=== PATIENT | male | born 1995 | race Caucasian/White ===

== ENCOUNTER → 2021-01-22 | Outpatient (CLI) | payer OTHER ==
[2021-01-22 15:03] LABS: APPEARANCE, URINE CLEAR (CLEAR); BACTERIA, URINE AUTO NEGATIVE (NEGATIVE); BILIRUBIN, URINE AUTO NEGATIVE (NEGATIVE); BLOOD, URINE BLOOD NEGATIVE (NEGATIVE); COLOR, URINE YELLOW (YELLOW); GLUCOSE, URINE (UA) AUTO NEGATIVE (NEGATIVE); KETONE, URINE AUTO NEGATIVE (NEGATIVE); LEUKOCYTE ESTERASE, URINE AUTO NEGATIVE (NEGATIVE); MUCUS, URINE SMALL (NEGATIVE); NITRITE, URINE AUTO NEGATIVE (NEGATIVE); PROTEIN, URINE AUTO NEGATIVE (NEGATIVE); RBC, URINE AUTO 1 /HPF (0-3); SPECIFIC GRAVITY URINE AUTO 1.021 (1.002-1.035); SQUAMOUS EPITHELIAL CELL UR AU 0 /HPF (0-6); UROBILINOGEN, URINE AUTO 0.2 mg/dL (0.0-2.0); WBC, URINE AUTO 0 /HPF (0-3)
[2021-01-22 15:07] LABS: BASO % 0.6 % (0.0-1.0); EOS # 0.1 10^3/uL (0.0-0.5); EOS % 1.6 % (0.0-3.0); LYMPH # 2.1 10^3/uL (1.5-5.0); LYMPH % 29.3 % (24.0-44.0); MEAN CORPUSCULAR HEMOGLOBIN 33.3 pg (27.0-33.0); MEAN CORPUSCULAR HGB CONC 34.6 g/dl (32.0-36.5); MEAN CORPUSCULAR VOLUME 96.3 fl (80.0-96.0); MONO # 0.4 10^3/uL (0.0-0.8); MONO % 6.2 % (2.0-8.0); NEUTROPHILS # 4.4 10^3/uL (1.5-8.5); PLATELET COUNT, AUTOMATED 182 10^3/uL (150-450); WHITE BLOOD COUNT 7.1 10^3/uL (4.0-10.0)
[2021-01-22 15:16] LABS: HEMATOCRIT 54.9 % (42.0-52.0)
[2021-01-22 15:34] LABS: ALBUMIN 4.4 GM/DL (3.2-5.2); ALT/SGPT 20 U/L (12-78); BILIRUBIN,TOTAL 0.4 MG/DL (0.2-1.0); BLOOD UREA NITROGEN 12 MG/DL (7-18); CALCIUM LEVEL 9.3 MG/DL (8.5-10.1); CARBON DIOXIDE LEVEL 30 MEQ/L (21-32); CHLORIDE LEVEL 107 MEQ/L (98-107); CREATININE FOR GFR 1.18 MG/DL (0.70-1.30); GLOMERULAR FILTRATION RATE > 60.0 (>60); GLUCOSE, FASTING 88 MG/DL (70-100); POTASSIUM SERUM 4.2 MEQ/L (3.5-5.1); SODIUM LEVEL 140 MEQ/L (136-145); TOTAL PROTEIN 7.3 GM/DL (6.4-8.2)
[2021-01-22 15:52] LABS: ERYTHROCYTE SEDIMENTATION RATE 1 mm/hr (0-15)
[2021-01-22 16:14] LABS: HEPATITIS C VIRUS ABY INDEX < 0.0 INDEX (<0.8)
[2021-01-22 16:15] LABS: HIV 1&2 SCREEN CENTAUR NEGATIVE (NEGATIVE)
== END ==
LOC: M LAB 14:08
PROVIDERS: ATTEND Internal Medicine Infectious Disease
DX: B51.9 Plasmodium vivax malaria without complication (principal)
CPT/HCPCS: 36415; 80053; 81001; 84443; 85025; 85652; 86140; 86803; 87040; 87207; 87389; G0463

== ENCOUNTER → 2021-01-30 | Outpatient (CLI) | payer OTHER ==
[2021-01-30 18:06] LABS: BASO # 0.1 10^3/uL (0.0-0.2); BASO % 0.7 % (0.0-1.0); EOS # 0.2 10^3/uL (0.0-0.5); EOS % 1.8 % (0.0-3.0); HEMOGLOBIN 18.2 g/dl (13.5-17.5); LYMPH # 2.5 10^3/uL (1.5-5.0); LYMPH % 30.3 % (24.0-44.0); MEAN CORPUSCULAR HEMOGLOBIN 33.8 pg (27.0-33.0); MEAN CORPUSCULAR VOLUME 96.5 fl (80.0-96.0); MONO # 0.6 10^3/uL (0.0-0.8); MONO % 6.7 % (2.0-8.0); NEUTROPHILS % 60.1 % (36.0-66.0); PLATELET COUNT, AUTOMATED 187 10^3/uL (150-450); RED BLOOD COUNT 5.39 10^6/uL (4.30-6.10); WHITE BLOOD COUNT 8.4 10^3/uL (4.0-10.0)
[2021-01-30 18:41] LABS: ERYTHROCYTE SEDIMENTATION RATE 1 mm/hr (0-15)
[2021-01-30 18:45] LABS: ALBUMIN 4.4 GM/DL (3.2-5.2); ALT/SGPT 18 U/L (12-78); BILIRUBIN,TOTAL 0.4 MG/DL (0.2-1.0); BLOOD UREA NITROGEN 17 MG/DL (7-18); CALCIUM LEVEL 9.3 MG/DL (8.5-10.1); CARBON DIOXIDE LEVEL 29 MEQ/L (21-32); CHLORIDE LEVEL 107 MEQ/L (98-107); CREATININE FOR GFR 1.17 MG/DL (0.70-1.30); GLOMERULAR FILTRATION RATE > 60.0 (>60); GLUCOSE, FASTING 87 MG/DL (70-100); SODIUM LEVEL 140 MEQ/L (136-145); TOTAL PROTEIN 7.2 GM/DL (6.4-8.2)
--- NOTE | 2021-01-31 03:17 | REP ---
INDICATION: COUGH, PLASMODIUM VIVAX MALARIA WITHOUT / LABS 1ST COMPARISON: None. TECHNIQUE: PA and lateral. FINDINGS: The mediastinum and cardiac silhouette are normal. The lung saldana are clear and without acute consolidation, effusion, or pneumothorax. The skeletal structures are intact and normal. IMPRESSION: No acute cardiopulmonary process. <Electronically signed by Chance Leung > 01/31/21 [id number]
== END ==
LOC: M LAB 16:27
PROVIDERS: ATTEND Internal Medicine Infectious Disease
DX: R05 Cough (principal); B51.9 Plasmodium vivax malaria without complication
CPT/HCPCS: 36415; 71046; 80053; 85025; 85652; 87207; G0463

== ENCOUNTER → 2021-02-01 | Outpatient (CLI) | payer OTHER ==
--- NOTE | 2021-02-01 09:42 | REP ---
INDICATION: NAUSEA, VOMITING COMPARISON: None. TECHNIQUE: Real time lewis scale ultrasound examination using curved array transducer. FINDINGS: Liver is normal in contour, size, and echogenicity without focal hepatic lesions identified. Pancreas is incompletely evaluated due to interposed bowel gas. The gallbladder is normal and without gallstones, wall thickening, or pericholecystic fluid. No biliary ductal dilatation is appreciated and the common bile duct measures 3.1 mm diameter. Right kidney is normal in reniform shape without hydronephrosis and measures 10.8 x 4.7 x 3.2 cm. No ascites in the visualized right upper quadrant. IMPRESSION: Normal limited right upper quadrant ultrasound <Electronically signed by Chance Leung > 02/01/21 0960
== END ==
LOC: M RAD 08:56
PROVIDERS: ATTEND Internal Medicine Infectious Disease
DX: R11.2 Nausea with vomiting, unspecified (principal)

== ENCOUNTER → 2021-03-14 | Outpatient (CLI) | payer OTHER ==
[~2021-03-14] MED LIST: PROHANCE 279.3MG/ML 15ML VIAL As Ordered ONE
--- NOTE | 2021-03-14 13:23 | REP ---
INDICATION: ERYTHROCYTOSIS, LBP. COMPARISON: None. TECHNIQUE: Sagittal and axial T1 and T2-weighted scans are acquired in the usual fashion with and without fat saturation. Sequences include spin echo, turbo spin-echo, and STIR imaging sequences. Gadolinium enhancement dose is 15 mL of intravenous ProHance. Axial and sagittal post gadolinium enhanced images are also acquired. FINDINGS: There is straightening of the normal lumbar lordosis. Lumbar vertebral body heights are preserved. No bony destructive lesion is seen. The tip of the conus medullaris is normal in position and appearance at the L1 level. No extra vertebral abnormality is appreciated. At L5-S1, there is degenerative narrowing and decreased signal intensity in the L5-S1 disc. There is a annulus tear with the a small central focal disc protrusion at L5-S1. This effaces the ventral epidural fat but does not appear to compress the thecal sac on MR images. There is bulging and some early discogenic spurring in the foraminal segments of the disc margin bilaterally producing minimal bilateral neural foraminal narrowing. No spinal stenosis is seen. Axial and sagittal images at L4-5 show no evidence of disc protrusion, foraminal narrowing, or central canal stenosis. The L3-4, L2-3, and L1-2 disc levels are unremarkable. IMPRESSION: Degenerative disc disease at L5-S1 with small central L5-S1 disc protrusion and mild bilateral foraminal segment discogenic spurring. <Electronically signed by Gopi Richard > 03/14/21 1949
== END ==
LOC: M RAD 09:54
PROVIDERS: ATTEND Internal Medicine Infectious Disease
DX: D75.1 Secondary polycythemia (principal); M51.26 Other intervertebral disc displacement, lumbar region; M51.36 Other intervertebral disc degeneration, lumbar region
CPT/HCPCS: 72148; A9576

== ENCOUNTER → 2021-03-20 | Outpatient (CLI) | payer OTHER ==
[~2021-03-20] MED LIST changes: +GASTROGRAFIN SOLUTION 30ML (Q9963) As Ordered ONE; +ISOVUE-370 76% 100ML VIAL As Ordered ONE; -PROHANCE 279.3MG/ML 15ML VIAL As Ordered ONE
--- NOTE | 2021-03-20 16:46 | REPVR ---
PROCEDURE INFORMATION: Exam: CT Abdomen And Pelvis Without And With Contrast Exam date and time: 03/20/2021 4:09 PM Age: 26 years old Clinical indication: Abdominal pain; Generalized; Additional info: Abd pain nausea vomiting wt loss fever TECHNIQUE: Imaging protocol: Computed tomography of the abdomen and pelvis without and with contrast. Radiation optimization: All CT scans at this facility use at least one of these dose optimization techniques: automated exposure control; mA and/or kV adjustment per patient size (includes targeted exams where dose is matched to clinical indication); or iterative reconstruction. Contrast material: ISOVUE 370; Contrast volume: 100 ml; Contrast route: INTRAVENOUS (IV); COMPARISON: LIVER US 02/01/2021 9:02 AM FINDINGS: Pleural spaces: No acute airspace or pleural disease. Liver: No focal hepatic mass. Gallbladder and bile ducts: Contracted gallbladder. No biliary ductal dilatation. Pancreas: No pancreatic mass or ductal dilatation. Spleen: Spleen upper limits of normal in size. Adrenal glands: Unremarkable adrenals. Kidneys and ureters: Normal renal morphology. No hydronephrosis. Stomach and bowel: Dilated contrast and fluid-filled stomach. Mild sigmoid colon wall thickening (series 301: Image 119). Prominent stool and diverticula, without pericolonic inflammation. Appendix: Status post appendectomy. Intraperitoneal space: No free fluid. Vasculature: Normal caliber of the abdominal aorta. Lymph nodes: Subcentimeter lymph nodes. Urinary bladder: Nondistended bladder. Reproductive: Unremarkable as visualized. Bones/joints: Schmorl's nodes and vertebral endplate irregularity. IMPRESSION: 1. Mild sigmoid colon wall thickening (series 301: Image 119). 2. Prominent stool and diverticula, without pericolonic inflammation. 3. Additional findings as described above. Electronically signed by: Alexis Fiore On 03/20/2021 16:45:41 PM
== END ==
LOC: M RAD 14:30
PROVIDERS: ATTEND Internal Medicine Infectious Disease
DX: R11.2 Nausea with vomiting, unspecified (principal); R63.4 Abnormal weight loss; K57.30 Diverticulosis of large intestine without perforation or abscess without bleeding
CPT/HCPCS: 74178; Q9963; Q9967

== ENCOUNTER → 2021-04-18 | Outpatient (CLI) | payer OTHER ==
[~2021-04-18] MED LIST changes: +ADDE30CA3 PO; +FLON1SPR NARES; -GASTROGRAFIN SOLUTION 30ML (Q9963) As Ordered ONE; -ISOVUE-370 76% 100ML VIAL As Ordered ONE; +MELO15TA28 PO; +METO10TA2 PO; +PANT40TA29 PO
--- NOTE | 2021-04-18 09:13 | PFTRPT ---
Site: [facility], [address] [place] [address], [id number] ID: [id number] Name: LEIGH ANN MENJIVAR Visit Date: 04/18/2021 Second ID: [id number] Referring Doctor: Khang Mariscal M.D. Reviewing Doctor: Sabas Bazan MD Toll Mechanic: [place] NELSON RRT Age: 26 : 1995 Sex: Male Race: Height: 70.00 Inches Weight: 165.00 Lbs BSA: 1.92 Order IDs: [id number] Requested Test(s): <RESP-PFT.PFT B/A> Diagnosis: LEUKEMIA test meet the ATS standards for acceptability and repeatability. Pt was given four puffs of albuterol for post bronchodilator. Review Status: Not Reviewed Pre-Bronch Post-Bronch Pred Actual %Pred Actual %Chng SPIROMETRY FVC (L) 5.52 6.57 119 6.60 FEV1 (L) 4.53 4.38 96 4.79 9 FEV1/FVC (%) 82 67 81 72 8 FEF 25% (L/sec) 8.07 5.92 73 6.19 4 FEF 50% (L/sec) 5.44 3.46 63 4.64 34 FEF 75% (L/sec) 2.14 1.58 73 2.17 37 FEF 25-75% (L/sec) 4.62 3.13 67 3.97 26 FEF Max (L/sec) 10.23 7.30 71 7.37 FIVC (L) 6.31 6.40 1 FIF 50% (L/sec) 5.58 7.51 134 6.47 -13 FIF Max (L/sec) 7.74 6.61 -14 MVV (L/min) 182 131 71 Expiratory Time (sec) 6.84 6.98 1 Back Extrap Vol (L) 0.11 0.13 19 Time To FEFmax (sec) 0.098 0.104 6 LUNG VOLUMES SVC (L) 5.33 6.40 120 IC (L) 3.54 4.95 139 ERV (L) 1.79 1.45 80 TGV (L) 3.35 5.40 161 RV (Pleth) (L) 1.56 3.95 253 TLC (Pleth) (L) 6.89 10.35 150 RV/TLC (Pleth) (%) 22 38 173 DIFFUSION DLCOunc (ml/min/mmHg) 35.96 34.40 95 DL/VA (ml/min/mmHg/L) 5.22 3.96 75 VA (L) 6.89 8.68 125 BHT (sec) 10.08 IVC (L) 6.22 TLC (SB) (L) 8.83 AIRWAYS RESISTANCE Raw (cmH2O/L/s) 1.45 0.91 62 Gaw (L/s/cmH2O) 1.03 1.10 107 sRaw (cmH2O*s) 4.76 4.53 95 sGaw (1/cmH2O*s) 0.20 0.22 110
--- NOTE | 2021-04-18 09:57 | REP ---
INDICATION: COPD PFT FIRST. COMPARISON: 01/30/2021 FINDINGS: The superior mediastinal structures are midline. The cardiac silhouette is unremarkable in size, shape, and position. The diaphragmatic surfaces of the lungs are regular, and the costophrenic angles are clear. The pulmonary saldana are clear. The imaged osseous structures are intact. IMPRESSION: There is no acute cardiopulmonary disease. There has been no significant change compared to the prior exam. <Electronically signed by Braydon Alvarez > 04/18/21 0923
== END ==
LOC: M CARPUL 08:35
PROVIDERS: ATTEND Internal Medicine Hematology & Oncology
DX: J44.9 Chronic obstructive pulmonary disease, unspecified (principal)

== ENCOUNTER → 2021-06-14 | Outpatient (CLI) | payer OTHER ==
[~2021-06-14] MED LIST changes: +METHACHOLINE KIT (J7674) INH ONE
--- NOTE | 2021-06-14 10:13 | PFTRPT ---
Visit Date: 06/14/2021 Referring Doctor: Minal Mcnair Height: 70.00 Inches Weight: 165.00 Lbs BSA: 1.92 Diagnosis: R06.02 QUALITY: Study of excellent technical quality. PROCEDURE: Under protocol, methacholine was administered. A dose of 25 mg or 188.875 CDUs, a 22% decline in the FEV1 was noted but the PC of 19.60 does not meet the diagnostic criteria for a positive study. Flow rates did return to baseline post bronchodilator administration. IMPRESSION: Indeterminate testing in view of the above. Please correlate clinically. MTDD
== END ==
LOC: M CARPUL 09:02
PROVIDERS: ATTEND Nurse Practitioner Adult Health
DX: R06.02 Shortness of breath (principal)

== ENCOUNTER 2021-07-20 14:05 | Day surgery (SDC) | payer OTHER ==
[~2021-07-20] VITALS: Ht 177.8 cm; Wt 77.0 kg
[~2021-07-20 14:05] MED LIST changes: +LR 1,000 ML IV ONE; -METHACHOLINE KIT (J7674) INH ONE; +NS 1,000 ML IV ONE
[2021-07-20] MEDS ORDERED: LIDOCAINE 2% 100MG/5ML SDV (FOR ANES.) As Ordered ONE (15:00)
[2021-07-20] MEDS ORDERED: propofoL 500 MG/50 ML VIAL As Ordered ONE (15:00)
--- NOTE | 2021-07-20 15:44 | ROOR ---
Patient Name: Sea Solano Procedure Date: 07/20/2021 3:11 PM Date of : 1995 Age: 26 Room: [facility] Gender: Male Note Status: Finalized Procedure: Upper GI endoscopy Indications: Dyspepsia, Weight loss Providers: Jonathan Jarvis MD Referring MD: Teto Baird Do Requesting Provider: Medicines: Monitored Anesthesia Care Complications: No immediate complications. Procedure: Pre-Anesthesia Assessment: - Prior to the procedure, a History and Physical was performed, and patient medications and allergies were reviewed. The patient is competent. The risks and benefits of the procedure and the sedation options and risks were discussed with the patient. All questions were answered and informed consent was obtained. Patient identification and proposed procedure were verified by the physician, the nurse and the anesthesiologist in the procedure room. Mental Status Examination: alert and oriented. Airway Examination: normal oropharyngeal airway and neck mobility. Respiratory Examination: clear to auscultation. CV Examination: normal. Prophylactic Antibiotics: The patient does not require prophylactic antibiotics. Prior Anticoagulants: The patient has taken no previous anticoagulant or antiplatelet agents. ASA Grade Assessment: II - A patient with mild systemic disease. After reviewing the risks and benefits, the patient was deemed in satisfactory condition to undergo the procedure. The anesthesia plan was to use monitored anesthesia care (MAC). Immediately prior to administration of medications, the patient was re-assessed for adequacy to receive sedatives. The heart rate, respiratory rate, oxygen saturations, blood pressure, adequacy of pulmonary ventilation, and response to care were monitored throughout the procedure. The physical status of the patient was re-assessed after the procedure. The Endoscope was introduced through the mouth, and advanced to the second part of duodenum. The upper GI endoscopy was accomplished without difficulty. The patient tolerated the procedure well. Findings: Patchy, white plaques were found in the middle third of the esophagus and in the lower third of the esophagus. Biopsies were taken with a cold forceps for histology. Cells for cytology were obtained by brushing. Verification of patient identification for the specimen was done by the physician and nurse using the patient's name, date and medical record number. Estimated blood loss was minimal. LA Grade A (one or more mucosal breaks less than 5 mm, not extending between tops of 2 mucosal folds) esophagitis with no bleeding was found in the distal esophagus. Scattered mild inflammation characterized by erythema and granularity was found in the gastric antrum. Biopsies were taken with a cold forceps for Helicobacter pylori testing. The first portion of the duodenum and second portion of the duodenum were normal. Biopsies for histology were taken with a cold forceps for evaluation of celiac disease. Impression: - Esophageal plaques were found, consistent with candidiasis. Biopsied. Cells for cytology obtained. - LA Grade A reflux esophagitis. - Gastritis. Biopsied. - Normal first portion of the duodenum and second portion of the duodenum. Biopsied. Recommendation: - Patient has a contact number available for emergencies. The signs and symptoms of potential delayed complications were discussed with the patient. Return to normal activities tomorrow. Written discharge instructions were provided to the patient. - High fiber diet. - Continue present medications. - Await pathology results. - Follow an antireflux regimen. - Telephone GI clinic for pathology results in 2 weeks. - Return to GI clinic if persistent symptoms or new symptoms. - Return to primary care physician. Procedure Code(s): --- Professional --- 51098, Esophagogastroduodenoscopy, flexible, transoral; with biopsy, single or multiple Diagnosis Code(s): --- Professional --- K22.9, Disease of esophagus, unspecified K21.0, Gastro-esophageal reflux disease with esophagitis K29.70, Gastritis, unspecified, without bleeding R10.13, Epigastric pain R63.4, Abnormal weight loss CPT copyright 2019 [employer]. All rights reserved. The codes documented in this report are preliminary and upon flying shear operator review may be revised to meet current compliance requirements. Jonathan Jarvis MD Jonathan Jarvis MD 07/20/2021 3:43:50 PM Electronically signed by Jonathan Jarvis MD Number of Addenda: 0 Note Initiated On: 07/20/2021 3:11 PM Estimated Blood Loss: Estimated blood loss was minimal.
--- NOTE | 2021-07-20 15:53 | ROOR ---
Patient Name: Sea Solano Procedure Date: 07/20/2021 3:07 PM Date of : 1995 Age: 26 Room: [facility] Gender: Male Note Status: Finalized Procedure: Colonoscopy Indications: Change in bowel habits, Weight loss Providers: Jonathan Jarvis MD Referring MD: Teto Baird Do Requesting Provider: Medicines: Monitored Anesthesia Care Complications: No immediate complications. Procedure: Pre-Anesthesia Assessment: - Prior to the procedure, a History and Physical was performed, and patient medications and allergies were reviewed. The patient is competent. The risks and benefits of the procedure and the sedation options and risks were discussed with the patient. All questions were answered and informed consent was obtained. Patient identification and proposed procedure were verified by the physician, the nurse and the anesthesiologist in the procedure room. Mental Status Examination: alert and oriented. Airway Examination: normal oropharyngeal airway and neck mobility. Respiratory Examination: clear to auscultation. CV Examination: normal. Prophylactic Antibiotics: The patient does not require prophylactic antibiotics. Prior Anticoagulants: The patient has taken no previous anticoagulant or antiplatelet agents. ASA Grade Assessment: II - A patient with mild systemic disease. After reviewing the risks and benefits, the patient was deemed in satisfactory condition to undergo the procedure. The anesthesia plan was to use monitored anesthesia care (MAC). Immediately prior to administration of medications, the patient was re-assessed for adequacy to receive sedatives. The heart rate, respiratory rate, oxygen saturations, blood pressure, adequacy of pulmonary ventilation, and response to care were monitored throughout the procedure. The physical status of the patient was re-assessed after the procedure. The Colonoscope was introduced through the anus and advanced to the terminal ileum, with identification of the appendiceal orifice and IC valve. The colonoscopy was performed without difficulty. The patient tolerated the procedure well. The quality of the bowel preparation was poor. The terminal ileum, ileocecal valve, appendiceal orifice, and rectum were photographed. Scope insertion time was 2 minutes. Scope withdrawal time was 8 minutes. The total duration of the procedure was 10 minutes. Findings: The perianal and digital rectal examinations were normal. The terminal ileum appeared normal. A moderate amount of solid stool was found in the transverse colon and in the ascending colon, interfering with visualization. Lavage of the area was performed using a large amount of sterile water, resulting in incomplete clearance with fair visualization. There is no endoscopic evidence of mass, stricture or ulcerations in the entire colon. Biopsies for histology were taken with a cold forceps from the right colon, left colon, transverse colon and rectosigmoid colon for evaluation of microscopic colitis. Verification of patient identification for the specimen was done by the physician and nurse using the patient's name, date and medical record number. Estimated blood loss was minimal. Non-bleeding external and internal hemorrhoids were found during retroflexion. The hemorrhoids were small. Impression: - Preparation of the colon was poor. - The examined portion of the ileum was normal. - Stool in the transverse colon and in the ascending colon. - Non-bleeding external and internal hemorrhoids. Recommendation: - Patient has a contact number available for emergencies. The signs and symptoms of potential delayed complications were discussed with the patient. Return to normal activities tomorrow. Written discharge instructions were provided to the patient. - High fiber diet. - Continue present medications. - Await pathology results. - Repeat colonoscopy after studies are complete to evaluate the response to therapy and because the examination was incomplete. - Repeat colonoscopy at age 49 for screening purposes. - Return to GI clinic if persistent symptoms or new symptoms. - Telephone GI clinic for pathology results in 2 weeks. - Return to primary care physician. Procedure Code(s): --- Professional --- 12327, Colonoscopy, flexible; with biopsy, single or multiple Diagnosis Code(s): --- Professional --- K64.8, Other hemorrhoids R19.4, Change in bowel habit R63.4, Abnormal weight loss CPT copyright 2019 [employer]. All rights reserved. The codes documented in this report are preliminary and upon chummer review may be revised to meet current compliance requirements. Jonathan Jarvis MD Jonathan Jarvis MD 07/20/2021 3:52:42 PM Electronically signed by Jonathan Jarvis MD Number of Addenda: 0 Note Initiated On: 07/20/2021 3:07 PM Estimated Blood Loss: Estimated blood loss was minimal.
[2021-07-20 16:08] VITALS: BP 114/64
== END 2021-07-20 16:10 | disposition home or self-care (01) ==
LOC: M SDC 14:05
PROVIDERS: ATTEND Internal Medicine Gastroenterology
DX: R63.4 Abnormal weight loss (principal); R10.13 Epigastric pain; R19.4 Change in bowel habit; K64.8 Other hemorrhoids; K29.70 Gastritis, unspecified, without bleeding; K21.00 Gastro-esophageal reflux disease with esophagitis, without bleeding; F43.10 Post-traumatic stress disorder, unspecified; F41.9 Anxiety disorder, unspecified; F32.9 Major depressive disorder, single episode, unspecified; J45.909 Unspecified asthma, uncomplicated; Z79.899 Other long term (current) drug therapy

== ENCOUNTER → 2021-08-29 | Outpatient (CLI) | payer OTHER ==
[~2021-08-29] MED LIST changes: +ISOVUE-370 76% 100ML VIAL As Ordered ONE; -LR 1,000 ML IV ONE; -NS 1,000 ML IV ONE
--- NOTE | 2021-08-29 17:34 | REP ---
INDICATION: COUGH COMPARISON: None. TECHNIQUE: Standard helical technique after the intravenous administration of 100 cc Isovue 370. FINDINGS: The mediastinum and pulmonary park are within normal limits. There is a tiny amount of soft tissue density seen in the anterior junction line likely a small amount of residual thymic tissue. There is no evidence of a mass or adenopathy. There are no pleural or pericardial effusions. The imaged upper abdomen and imaged osseous structures are within normal limits. Evaluation of the lung saldana shows no abnormal nodules, masses, or opacities. IMPRESSION: CT findings are within normal limits. <Electronically signed by Braydon Alvarez > 08/29/21 [id number]
== END ==
LOC: M RAD 16:04
PROVIDERS: ATTEND Specialist
DX: R05.9 Cough, unspecified (principal)
CPT/HCPCS: 71260; Q9967

== ENCOUNTER → 2021-08-29 | Outpatient (CLI) | payer OTHER ==
[~2021-08-29] MED LIST changes: -ISOVUE-370 76% 100ML VIAL As Ordered ONE
== END ==
LOC: M LAB 16:06
PROVIDERS: ATTEND Internal Medicine Gastroenterology
DX: R19.7 Diarrhea, unspecified (principal)

== ENCOUNTER → 2021-09-05 | Outpatient (REF) | payer OTHER | LOC: M LAB REF 15:31 | PROVIDERS: ATTEND Internal Medicine Gastroenterology | DX: R19.7 Diarrhea, unspecified (principal) ==

== ENCOUNTER 2021-10-16 17:26 | Emergency (ER) | payer OTHER ==
[~2021-10-16] VITALS: Ht 177.8 cm; Wt 72.7 kg
[2021-10-16] MEDS ORDERED: PROZ20CA11 PO (17:41)
[2021-10-16 19:29] VITALS: BP 118/61
== END 2021-10-16 19:30 | disposition home or self-care (01) ==
LOC: M ED 17:26
DX: F43.20 Adjustment disorder, unspecified (principal); F32.9 Major depressive disorder, single episode, unspecified; J45.909 Unspecified asthma, uncomplicated; Z79.899 Other long term (current) drug therapy

== ENCOUNTER → 2021-12-21 | Outpatient (CLI) | payer OTHER ==
[~2021-12-21] MED LIST changes: +PROZ20CA11 PO
== END ==
LOC: M RAD 10:38
PROVIDERS: ATTEND Internal Medicine Medical Oncology
DX: R22.2 Localized swelling, mass and lump, trunk (principal)

== ENCOUNTER 2022-02-10 19:33 | Inpatient (IN) | payer OTHER ==
[~2022-02-10] VITALS: Ht 175.3 cm; Wt 72.7 kg
[2022-02-10 20:33] LABS: HEMATOCRIT 49.1 % (42.0-52.0); HEMOGLOBIN 16.4 g/dl (13.5-17.5); MEAN CORPUSCULAR HEMOGLOBIN 33.1 pg (27.0-33.0); MEAN CORPUSCULAR HGB CONC 33.4 g/dl (32.0-36.5); MEAN CORPUSCULAR VOLUME 99.2 fl (80.0-96.0); PLATELET COUNT, AUTOMATED 206 10^3/uL (150-450); RED BLOOD COUNT 4.95 10^6/uL (4.30-6.10); WHITE BLOOD COUNT 9.2 10^3/uL (4.0-10.0)
[2022-02-10 21:03] LABS: AMPHETAMINES LEVEL URINE NEGATIVE (NEGATIVE); BARBITURATES URINE NEGATIVE (NEGATIVE); BENZODIAZEPINES URINE POSITIVE (NEGATIVE); CANNABINOIDS URINE POSITIVE (NEGATIVE); COCAINE METABOLITE URINE NEGATIVE (NEGATIVE); METHADONE URINE NEGATIVE (NEGATIVE); OPIATES URINE POSITIVE (NEGATIVE); PHENCYCLIDINE URINE POSITIVE (NEGATIVE)
[2022-02-10 21:06] LABS: ACETAMINOPHEN LEVEL < 2.0 UG/ML (10.0-30.0); ALBUMIN 4.1 GM/DL (3.2-5.2); ALT/SGPT 24 U/L (12-78); BILIRUBIN,DIRECT 0.3 MG/DL (0.0-0.2); BILIRUBIN,TOTAL 0.8 MG/DL (0.2-1.0); BLOOD UREA NITROGEN 20 MG/DL (7-18); CALCIUM LEVEL 8.8 MG/DL (8.5-10.1); CARBON DIOXIDE LEVEL 28 MEQ/L (21-32); CHLORIDE LEVEL 108 MEQ/L (98-107); CREATININE FOR GFR 1.37 MG/DL (0.70-1.30); ETHYL ALCOHOL (ETHANOL) < 0.003 % (0.000-0.010); GLOMERULAR FILTRATION RATE > 60.0 (>60); GLUCOSE, FASTING 113 MG/DL (70-100); POTASSIUM SERUM 4.2 MEQ/L (3.5-5.1); SALICYLATE LEVEL < 1.7 MG/DL (5.0-30.0); SODIUM LEVEL 142 MEQ/L (136-145)
[2022-02-10 21:11] LABS: RSV AMPLIFICATION NEGATIVE (NEGATIVE)
[2022-02-11] MEDS ORDERED: LEXA1TAB2 PO (07:54)
[2022-02-11] MEDS ORDERED: PANT40TA29 PO (07:55)
[2022-02-11] MEDS ORDERED: ADVA115A INH (07:55)
[2022-02-11] MEDS ORDERED: HOME MED LIST COMPLETE! XX SCH (08:00)
[2022-02-11] MEDS ORDERED: FLUoxetine 20MG CAP PO ONE (08:35)
[2022-02-11] MEDS ORDERED: ESCITALOPRAM OXALATE 10 MG TAB (LEXAPRO) PO ONE (08:35)
[2022-02-11] MEDS ORDERED: PANTOPRAZOLE 40MG TAB (PROTONIX) PO ONE (08:35)
[2022-02-11] MEDS: PANTOPRAZOLE 40MG TAB (PROTONIX) PO SCH (09:00)
[2022-02-11] MEDS: FLUoxetine 20MG CAP PO SCH (09:00)
[2022-02-11] MEDS: ADVAIR HFA 115/21MCG INHALER INH SCH ×2 (09:00→22:01)
[2022-02-11] MEDS: FOLIC ACID 1 MG TAB PO SCH (09:00)
[2022-02-11] MEDS: MULTIVITAMINS/MINERALS THERAP 1 TAB PO SCH (09:00)
[2022-02-11] MEDS: NICOTINE 21MG/24HR 1 EA TRANSDERMAL TD SCH (09:00)
[2022-02-11] MEDS: AMPHETAMINE/DEXTROAMPHETAMINE 5 MG *ER* CAPSULE (ADDERALL XR) PO SCH (09:00)
[2022-02-11] MEDS ORDERED: diphenhydrAMINE 25MG CAP PO PRN (12:35)
[2022-02-11] MEDS ORDERED: MOM 30ML SUSPENSION UDC PO PRN (12:35)
[2022-02-11] MEDS ORDERED: ACETAMINOPHEN TAB 650MG DOSE (2X325MG) PO PRN (12:35)
[2022-02-11] MEDS ORDERED: MAALOX 30 ML SUSP *UDC PO PRN (12:35)
[2022-02-11] MEDS ORDERED: ADVAIR HFA 115/21MCG INHALER INH PRN (12:35)
[2022-02-11] MEDS ORDERED: LORazepam 2 MG TAB PO PRN (12:35)
[2022-02-11] MEDS: THIAMINE 100 MG TAB PO SCH ×2 (13:00→22:02)
[2022-02-11 20:51] VITALS: BP 123/80
[2022-02-11 21:00] VITALS: BP 123/80
[2022-02-11] MEDS: traZODone 50 MG TAB PO PRN (22:02)
[2022-02-12 06:40] VITALS: BP 133/66
[2022-02-12] MEDS: THIAMINE 100 MG TAB PO SCH ×2 (08:31→20:15)
[2022-02-12] MEDS: FLUoxetine 20MG CAP PO SCH (08:31)
[2022-02-12] MEDS: ADVAIR HFA 115/21MCG INHALER INH SCH ×2 (08:31→20:15)
[2022-02-12] MEDS: PANTOPRAZOLE 40MG TAB (PROTONIX) PO SCH (08:31)
[2022-02-12] MEDS: MULTIVITAMINS/MINERALS THERAP 1 TAB PO SCH (08:32)
[2022-02-12] MEDS: FOLIC ACID 1 MG TAB PO SCH (08:32)
[2022-02-12] MEDS: NICOTINE 21MG/24HR 1 EA TRANSDERMAL TD SCH (08:32)
[2022-02-12] MEDS: AMPHETAMINE/DEXTROAMPHETAMINE 5 MG *ER* CAPSULE (ADDERALL XR) PO SCH (12:33)
[2022-02-12 18:03] VITALS: BP 136/75
[2022-02-12] MEDS: traZODone 50 MG TAB PO PRN (20:15)
[2022-02-12 21:30] VITALS: BP 136/75
[2022-02-13 06:49] VITALS: BP 134/59
[2022-02-13 06:50] VITALS: BP 134/59
[2022-02-13] MEDS: PANTOPRAZOLE 40MG TAB (PROTONIX) PO SCH (08:28)
[2022-02-13] MEDS: AMPHETAMINE/DEXTROAMPHETAMINE 5 MG *ER* CAPSULE (ADDERALL XR) PO SCH (08:28)
[2022-02-13] MEDS: FLUoxetine 20MG CAP PO SCH (08:28)
[2022-02-13] MEDS: THIAMINE 100 MG TAB PO SCH ×2 (08:28→20:50)
[2022-02-13] MEDS: ADVAIR HFA 115/21MCG INHALER INH SCH ×2 (08:28→20:50)
[2022-02-13] MEDS: FOLIC ACID 1 MG TAB PO SCH (08:28)
[2022-02-13] MEDS: MULTIVITAMINS/MINERALS THERAP 1 TAB PO SCH (08:28)
[2022-02-13 08:38] LABS: BLOOD UREA NITROGEN 10 MG/DL (7-18); CALCIUM LEVEL 9.5 MG/DL (8.5-10.1); CARBON DIOXIDE LEVEL 27 MEQ/L (21-32); CHLORIDE LEVEL 108 MEQ/L (98-107); CREATININE FOR GFR 1.09 MG/DL (0.70-1.30); GLOMERULAR FILTRATION RATE > 60.0 (>60); GLUCOSE, FASTING 90 MG/DL (70-100); POTASSIUM SERUM 3.6 MEQ/L (3.5-5.1); SODIUM LEVEL 142 MEQ/L (136-145)
[2022-02-13] MEDS: NICOTINE 21MG/24HR 1 EA TRANSDERMAL TD SCH (09:00)
[2022-02-13 18:10] VITALS: BP 136/90
[2022-02-13 20:10] VITALS: BP 136/90
[2022-02-13] MEDS: traZODone 50 MG TAB PO PRN (20:50)
[2022-02-14 06:26] VITALS: BP 139/60
[2022-02-14 06:27] VITALS: BP 139/60
[2022-02-14] MEDS: ADVAIR HFA 115/21MCG INHALER INH SCH (08:10)
[2022-02-14] MEDS: AMPHETAMINE/DEXTROAMPHETAMINE 5 MG *ER* CAPSULE (ADDERALL XR) PO SCH (08:14)
[2022-02-14] MEDS: FOLIC ACID 1 MG TAB PO SCH (08:14)
[2022-02-14] MEDS: FLUoxetine 20MG CAP PO SCH (08:14)
[2022-02-14] MEDS: MULTIVITAMINS/MINERALS THERAP 1 TAB PO SCH (08:14)
[2022-02-14] MEDS: PANTOPRAZOLE 40MG TAB (PROTONIX) PO SCH (08:14)
[2022-02-14] MEDS: NICOTINE 21MG/24HR 1 EA TRANSDERMAL TD SCH (08:15)
[2022-02-14] MEDS ORDERED: NICO21PAT TD (09:47)
== END 2022-02-14 13:35 | disposition home or self-care (01) | DRG 881 ==
LOC: M ED 19:33 → M ED INP 02-11 12:35 → M PSY 02-11 20:44
PROVIDERS: ADMIT Student in an Organized Health Care Education/Training Program; ATTEND Psychiatry & Neurology Psychiatry
DX: F32.A Depression, unspecified (principal); R45.851 Suicidal ideations; Z79.899 Other long term (current) drug therapy; F12.90 Cannabis use, unspecified, uncomplicated; F41.9 Anxiety disorder, unspecified; Z65.3 Problems related to other legal circumstances; Z63.0 Problems in relationship with spouse or partner; F11.90 Opioid use, unspecified, uncomplicated

== ENCOUNTER → 2022-03-14 | Outpatient (REF) ==
[~2022-03-14] MED LIST changes: +ADVA115A INH; +LEXA1TAB2 PO; +NICO21PAT TD
== END ==
LOC: M RAD 10:00
PROVIDERS: ATTEND Internal Medicine
DX: R52 Pain, unspecified (principal); R06.02 Shortness of breath

== ENCOUNTER 2022-04-08 09:27 | Emergency (ER) | payer OTHER ==
[~2022-04-08] VITALS: Ht 177.8 cm; Wt 72.7 kg
[2022-04-08 09:28] VITALS: BP 125/78
[2022-04-08] MEDS ORDERED: KETOROLAC TROMETHAMINE 10 MG TAB PO ONE (11:05)
== END 2022-04-08 12:19 | disposition home or self-care (01) ==
LOC: M ED 09:27
DX: S93.401A Sprain of unspecified ligament of right ankle, initial encounter (principal); M25.572 Pain in left ankle and joints of left foot; W17.89XA Other fall from one level to another, initial encounter; Y92.481 Parking lot as the place of occurrence of the external cause; J45.909 Unspecified asthma, uncomplicated; F32.A Depression, unspecified; F41.9 Anxiety disorder, unspecified; M54.9 Dorsalgia, unspecified; Z79.899 Other long term (current) drug therapy

== ENCOUNTER 2023-08-12 11:13 | Emergency (ER) | payer OTHER ==
[~2023-08-12] VITALS: Ht 177.8 cm; Wt 76.5 kg
[2023-08-12 11:13] VITALS: BP 132/81; TEMP 99.2; O2SAT 98
== END 2023-08-12 11:35 | disposition left against medical advice (07) ==
LOC: M ED 11:13
DX: Z53.21 Procedure and treatment not carried out due to patient leaving prior to being seen by health care provider (principal)

== ENCOUNTER 2024-02-22 20:44 | Inpatient (IN) | payer OTHER, SELFPAY ==
[2024-02-22 21:32] LABS: HEMATOCRIT 39.8 % (42.0-52.0); HEMOGLOBIN 13.5 g/dl (13.5-17.5); MEAN CORPUSCULAR HEMOGLOBIN 32.5 pg (27.0-33.0); MEAN CORPUSCULAR HGB CONC 33.9 g/dl (32.0-36.5); MEAN CORPUSCULAR VOLUME 95.7 fl (80.0-96.0); PLATELET COUNT, AUTOMATED 141 10^3/uL (150-450); RED BLOOD COUNT 4.16 10^6/uL (4.30-6.10); WHITE BLOOD COUNT 6.3 10^3/uL (4.0-10.0)
[2024-02-22 21:49] LABS: AMPHETAMINES LEVEL URINE NEGATIVE (NEGATIVE); BARBITURATES URINE NEGATIVE (NEGATIVE); BENZODIAZEPINES URINE NEGATIVE (NEGATIVE); COCAINE METABOLITE URINE NEGATIVE (NEGATIVE); METHADONE URINE NEGATIVE (NEGATIVE); OPIATES URINE NEGATIVE (NEGATIVE); PHENCYCLIDINE URINE NEGATIVE (NEGATIVE)
[2024-02-22 21:52] LABS: CANNABINOIDS URINE POSITIVE (NEGATIVE)
[2024-02-22 21:53] LABS: ETHYL ALCOHOL (ETHANOL) 0.005 % (0.000-0.010)
[2024-02-22 21:54] LABS: SALICYLATE LEVEL < 3.0 MG/DL (<30)
[2024-02-22 21:55] LABS: ALBUMIN 4.1 G/DL (3.2-5.2); ALKALINE PHOSPHATASE 55 U/L (46-116); ALT/SGPT 19 U/L (7.0-40); AST/SGOT < 8 U/L (<34); BILIRUBIN,DIRECT < 0.1 MG/DL (<0.4); BILIRUBIN,TOTAL 0.4 MG/DL (0.3-1.2); BLOOD UREA NITROGEN 17 MG/DL (9-23); CALCIUM LEVEL 8.6 MG/DL (8.5-10.1); CARBON DIOXIDE LEVEL 29 MMOL/L (20-31); CHLORIDE LEVEL 109 MMOL/L (98-107); CREATININE FOR GFR 1.13 MG/DL (0.70-1.30); GLOMERULAR FILTRATION RATE > 60.0 (>60); GLUCOSE, FASTING 94 MG/DL (60-100); SODIUM LEVEL 145 MMOL/L (136-145); TOTAL PROTEIN 6.1 G/DL (5.7-8.2)
[2024-02-22] MEDS ORDERED: IBUPROFEN 400MG TAB PO PRN (23:05)
[2024-02-22] MEDS ORDERED: MAALOX 30 ML SUSP *UDC PO PRN (23:05)
[2024-02-22] MEDS ORDERED: ACETAMINOPHEN TAB 650MG DOSE (2X325MG) PO PRN (23:05)
[2024-02-22] MEDS ORDERED: HOME MED LIST COMPLETE! XX SCH ×2 (23:10→23:40)
[2024-02-22] MEDS: LORazepam 0.5 MG TAB PO ONE (23:17)
[2024-02-22] MEDS ORDERED: MED REC CURRENTLY UNOBTAINABLE XX SCH (23:25)
[2024-02-22] MEDS: NICOTINE 21MG/24HR 1 EA TRANSDERMAL TD SCH (23:30)
[2024-02-22] MEDS ORDERED: VITA100093 PO (23:38)
[2024-02-22] MEDS ORDERED: ATOM40CA9 PO (23:38)
[2024-02-23 01:25] VITALS: BP 119/74; TEMP 97.3; O2SAT 96
[2024-02-23 06:45] VITALS: BP 128/66; TEMP 98.4; O2SAT 100
[2024-02-23 18:24] VITALS: BP 130/72; TEMP 98.2
[2024-02-23] MEDS: traZODone 50 MG TAB PO PRN (20:20)
[2024-02-23] MEDS: diphenhydrAMINE 25MG CAP PO PRN (22:57)
[2024-02-24 06:15] VITALS: BP 122/63; TEMP 98.2; O2SAT 100
[2024-02-24] MEDS: OLANZapine 5 MG TAB PO SCH (09:14)
[2024-02-24] MEDS: NICOTINE 21MG/24HR 1 EA TRANSDERMAL TD SCH (09:14)
[2024-02-24] MEDS: OLANZapine ORAL DISINTEGRATING TAB 5MG PO PRN (13:52)
[2024-02-24 18:45] VITALS: BP 142/82; TEMP 98
[2024-02-25 06:45] VITALS: BP 109/53; TEMP 97.7; O2SAT 100
[2024-02-25 18:56] VITALS: BP 118/77; TEMP 97.7
[2024-02-26 06:12] VITALS: BP 103/64; TEMP 98; O2SAT 100
[2024-02-26] MEDS: OLANZapine 5 MG TAB PO SCH (10:35)
[2024-02-26] MEDS: DIVALPROEX 250MG TAB PO SCH (11:18)
[2024-02-26 17:55] VITALS: BP 123/82; TEMP 97.5; O2SAT 99
[2024-02-26] MEDS: OLANZapine 10 MG TAB PO SCH (20:09)
[2024-02-27 06:24] VITALS: BP 133/59; TEMP 97.4; O2SAT 99
[2024-02-27] MEDS ORDERED: OLANZapine 5 MG TAB PO SCH (09:00)
[2024-02-27 16:09] VITALS: BP 120/76; TEMP 97.8; O2SAT 100
[2024-02-28 06:44] VITALS: BP 111/57; TEMP 97.9; O2SAT 97
[2024-02-28] MEDS: OLANZapine 10 MG TAB PO SCH (09:49)
[2024-02-28 15:41] VITALS: BP 129/70; TEMP 97.7; O2SAT 100
[2024-02-29 06:27] VITALS: BP 133/92; TEMP 97.6; O2SAT 98
[2024-02-29 15:42] VITALS: BP 133/66; TEMP 98.3; O2SAT 99
[2024-03-01 06:42] VITALS: BP 102/55; TEMP 97.3; O2SAT 99
[2024-03-01] MEDS: DIVALPROEX 250MG TAB PO SCH (12:27)
[2024-03-01 18:00] VITALS: BP 126/76; TEMP 98.2
[2024-03-02 06:51] VITALS: BP 112/55; TEMP 98; O2SAT 97
[2024-03-02] MEDS ORDERED: DEPA250T32 PO ×2 (12:35)
[2024-03-02] MEDS ORDERED: TRAZ-252 PO (12:35)
[2024-03-02] MEDS ORDERED: OLAN1TAB20 PO ×2 (12:35)
[2024-03-02] MEDS ORDERED: HALO5TAB33 PO (12:35)
== END 2024-03-02 12:52 | disposition home or self-care (01) | DRG 885 ==
LOC: M ED 20:44 → M ED INP 23:02 → M PSY 02-23 00:48
PROVIDERS: ADMIT Student in an Organized Health Care Education/Training Program; ATTEND Student in an Organized Health Care Education/Training Program
DX: F31.2 Bipolar disorder, current episode manic severe with psychotic features (principal); B54 Unspecified malaria; C95.90 Leukemia, unspecified not having achieved remission; F41.9 Anxiety disorder, unspecified; F90.9 Attention-deficit hyperactivity disorder, unspecified type; F12.90 Cannabis use, unspecified, uncomplicated

== ENCOUNTER 2024-03-05 11:58 | Emergency (ER) | payer OTHER ==
[~2024-03-05 11:58] MED LIST changes: +ATOM40CA9 PO; +DEPA250T32 PO; +HALO5TAB33 PO; +OLAN1TAB20 PO; +TRAZ-252 PO; +VITA100093 PO
[2024-03-05] MEDS: NICOTINE 21MG/24HR 1 EA TRANSDERMAL TD ONE (12:46)
[2024-03-05 12:53] LABS: HEMATOCRIT 38.6 % (42.0-52.0); HEMOGLOBIN 12.9 g/dl (13.5-17.5); MEAN CORPUSCULAR HEMOGLOBIN 32.8 pg (27.0-33.0); MEAN CORPUSCULAR HGB CONC 33.4 g/dl (32.0-36.5); MEAN CORPUSCULAR VOLUME 98.2 fl (80.0-96.0); PLATELET COUNT, AUTOMATED 133 10^3/uL (150-450); RED BLOOD COUNT 3.93 10^6/uL (4.30-6.10); WHITE BLOOD COUNT 10.3 10^3/uL (4.0-10.0)
[2024-03-05 13:15] LABS: AMPHETAMINES LEVEL URINE NEGATIVE (NEGATIVE); BARBITURATES URINE NEGATIVE (NEGATIVE); BENZODIAZEPINES URINE NEGATIVE (NEGATIVE); COCAINE METABOLITE URINE NEGATIVE (NEGATIVE); METHADONE URINE NEGATIVE (NEGATIVE); OPIATES URINE NEGATIVE (NEGATIVE); PHENCYCLIDINE URINE NEGATIVE (NEGATIVE)
[2024-03-05 13:17] LABS: CANNABINOIDS URINE POSITIVE (NEGATIVE)
[2024-03-05 13:18] LABS: ETHYL ALCOHOL (ETHANOL) 0.004 % (0.000-0.010); VALPROIC ACID (DEPAKOTE) < 3.0 UG/ML (50.0-100.0)
[2024-03-05 13:20] LABS: ALBUMIN 3.8 G/DL (3.2-5.2); ALKALINE PHOSPHATASE 90 U/L (46-116); ALT/SGPT 39 U/L (7.0-40); AST/SGOT 15 U/L (<34); BILIRUBIN,DIRECT 0.1 MG/DL (<0.4); BILIRUBIN,TOTAL 0.3 MG/DL (0.3-1.2); BLOOD UREA NITROGEN 11 MG/DL (9-23); CALCIUM LEVEL 8.9 MG/DL (8.5-10.1); CARBON DIOXIDE LEVEL 30 MMOL/L (20-31); CHLORIDE LEVEL 107 MMOL/L (98-107); CREATININE FOR GFR 0.85 MG/DL (0.70-1.30); GLOMERULAR FILTRATION RATE > 60.0 (>60); GLUCOSE, FASTING 100 MG/DL (60-100); POTASSIUM SERUM 3.9 MMOL/L (3.5-5.1); SALICYLATE LEVEL < 3.0 MG/DL (<30); SODIUM LEVEL 142 MMOL/L (136-145); TOTAL PROTEIN 5.8 G/DL (5.7-8.2)
[2024-03-05 13:22] LABS: THYROID STIMULATING HORMONE 1.706 uIU/ML (0.55-4.78)
[2024-03-05] MEDS ORDERED: DIVA250T67 PO (14:22)
[2024-03-05] MEDS ORDERED: OLAN1TAB20 PO (14:23)
[2024-03-05] MEDS ORDERED: TRAZ-186 PO (14:24)
[2024-03-05 14:25] VITALS: BP 126/74; TEMP 98.6; O2SAT 100
== END 2024-03-05 14:28 | disposition home or self-care (01) ==
LOC: M ED 11:58
DX: F31.9 Bipolar disorder, unspecified (principal); Z79.899 Other long term (current) drug therapy

== ENCOUNTER 2024-04-12 13:53 | Emergency (ER) | payer OTHER ==
[~2024-04-12] VITALS: Ht 175.3 cm; Wt 78.2 kg
[~2024-04-12 13:53] MED LIST changes: +DIVA250T67 PO; +TRAZ-186 PO
[2024-04-12 17:20] VITALS: BP 139/89; TEMP 97.3; O2SAT 100
== END 2024-04-12 17:21 | disposition home or self-care (01) ==
LOC: M ED 13:53
DX: R06.00 Dyspnea, unspecified (principal); J45.909 Unspecified asthma, uncomplicated; D75.0 Familial erythrocytosis; F41.9 Anxiety disorder, unspecified; F32.A Depression, unspecified; F90.9 Attention-deficit hyperactivity disorder, unspecified type; Z79.899 Other long term (current) drug therapy

== ENCOUNTER 2025-05-27 04:33 | Emergency (ER) | payer OTHER ==
[~2025-05-27] VITALS: Ht 175.3 cm; Wt 75.8 kg
[~2025-05-27 04:33] MED LIST changes: -DEPA250T32 PO; +DIVA-65 PO; -PROZ20CA11 PO; +PROZ20CA12 PO
[2025-05-27 04:37] VITALS: BP 137/88; TEMP 97.7; O2SAT 99
[2025-05-27 06:27] LABS: Trichomonas vaginalis (AMP) NOT DETECTED (NEGATIVE)
[2025-05-27 06:51] LABS: GC DNA AMPLIFICATION NEGATIVE (NEGATIVE)
== END 2025-05-27 06:20 | disposition left against medical advice (07) ==
LOC: M ED 04:33
DX: Z53.21 Procedure and treatment not carried out due to patient leaving prior to being seen by health care provider (principal)